=== PATIENT | female | born 1975 | race Caucasian/White ===

== ENCOUNTER 2024-07-18 14:08 | Emergency (ER) | payer MEDICARE, MEDICAID ==
[~2024-07-18] VITALS: Ht 160 cm; Wt 70.5 kg
[2024-07-18 14:30] VITALS: TEMP 97.7
[2024-07-18] MEDS: SODIUM CHLORIDE 0.9% 1,000 ML IV ONE (14:31)
[2024-07-18] MEDS: METOCLOPRAMIDE HCL 5 MG/ML 2 ML VIAL IVP ONE (14:31)
[2024-07-18 15:10] LABS: COVID AG,FIA SOURCE NASAL SWAB
[2024-07-18 15:12] LABS: BASOPHILS % (AUTO) 0.6 % (0.0-2.0); EOSINOPHILS % (AUTO) 0 % (1.0-6.0); HEMATOCRIT 34.6 % (36-46); HEMOGLOBIN 11.4 g/dL (12.0-16.0); LYMPHOCYTES % (AUTO) 5.9 % (22.0-44.0); MEAN CORPUSCULAR HGB CONC 32.8 G/dL (31.0-37.0); MEAN CORPUSCULAR VOLUME 97 fL (80-100); MONOCYTES # (AUTO) 0.6 K/uL (0.1-1.0); MONOCYTES % (AUTO) 3.7 % (2.0-9.0); NEUTROPHILS # (AUTO) 14.6 K/uL (1.8-7.7); PLATELET COUNT (AUTO) 313 K/uL (150-450); RED BLOOD CELL COUNT(AUTO) 3.55 MIL/uL (4.00-5.20); RED CELL DISTRIBUTION WIDTH 13.4 % (11.5-14.5); WHITE BLOOD COUNT (AUTO) 16.3 K/uL (4.5-11.0)
[2024-07-18 15:14] LABS: CALCIUM, TOTAL 8.9 mg/dL (8.8-10.5); CREATININE 1.66 mg/dL (0.60-1.30); NEUTROPHILS % (AUTO) 89.8 % (40.0-70.0); POTASSIUM 3.8 mmol/L (3.5-5.1)
[2024-07-18 15:20] LABS: ALBUMIN 3.5 g/dL (3.4-5.0); BILIRUBIN,DIRECT 0.2 mg/dL (0.00-0.20); BILIRUBIN,TOTAL 0.7 mg/dL (0.1-1.0); TOTAL PROTEIN, SERUM 7.3 g/dL (6.4-8.2)
[2024-07-18] MEDS ORDERED: ESCI-8 PO (15:23)
[2024-07-18] MEDS ORDERED: LISI2.5T13 PO (15:26)
[2024-07-18 15:31] LABS: APPEARANCE,URINE CLEAR (CLEAR); BILIRUBIN,URINE NEGATIVE (NEGATIVE); COLOR,URINE LIGHT YELLOW (YELLOW); GLUCOSE, URINE (UA) NEGATIVE (NEGATIVE); LEUKOCYTE ESTERASE ,URINE NEGATIVE (NEGATIVE); NITRATE,URINE NEGATIVE (NEGATIVE); OCCULT BLOOD,URINE TRACE (NEGATIVE); PROTEIN,URINE TRACE mg/dL (NEGATIVE); SPECIFIC GRAVITIY, URINE 1.015 (1.003-1.030); UROBILINOGEN,URINE <=1.0 mg/dL (<=1.0)
[2024-07-18 15:35] LABS: INFLUENZA TYPE A NEGATIVE FOR TYPE A (NEGATIVE); INFLUENZA TYPE B NEGATIVE FOR TYPE B (NEGATIVE); SARS-COV2 (COVID) ANTIGEN,FIA Negative (Negative)
[2024-07-18 15:44] LABS: BACTERIA,URINE Rare /HPF (None Seen); SQUAMOUS EPITHELIAL CELL,UR Few /LPF (None Seen); WBC,URINE 0-2 /HPF (0-5)
[2024-07-18 15:51] LABS: RBC MORPHOLOGY COMMENT NORMAL RBC MORPH
[2024-07-18] MEDS: PROCHLORPERAZINE EDISYLATE 5 MG/ML 2 ML VIAL IVP ONE (16:52)
[2024-07-18] MEDS: DICYCLOMINE HCL 10 MG CAPSULE PO ONE (17:05)
[2024-07-18] MEDS ORDERED: ONDA-243 PO (18:47)
[2024-07-18 19:07] VITALS: BP 125/68; PULSE 63; RESP 16; O2SAT 98
== END 2024-07-18 19:19 | disposition home or self-care (01) ==
LOC: EMS 14:13
DX: K29.70 Gastritis, unspecified, without bleeding (principal); N17.9 Acute kidney failure, unspecified; D72.829 Elevated white blood cell count, unspecified; R10.84 Generalized abdominal pain; R19.7 Diarrhea, unspecified; Z20.822 Contact with and (suspected) exposure to COVID-19
CPT/HCPCS: 99285; 74176; 96374; 96361; 96375; 87426; 80048; 80076; 83690; 84703; 85025; 87804; 86850; 86900; 86901; 36415; 93005; 81001; G0480; J2765; J0780; J7030